=== PATIENT | female | born 1945 | race Caucasian/White ===

== ENCOUNTER 2017-02-17 10:28 | Emergency (ER) | payer MEDICARE, OTHER ==
[2017-02-17 10:41] VITALS: BP 148/67
[2017-02-17] MEDS ORDERED: Albuterol 2.5 MG/3 ML NEB.SOL* (0.083%) INH ONE (10:54)
[2017-02-17] MEDS ORDERED: predniSONE TAB* 20 MG PO ONE (10:55)
[2017-02-17] MEDS ORDERED: Ipratropium 0.5MG/2.5ML NEB* 0.5 MG/2.5 ML NEB.SOLN INH ONE (10:55)
--- NOTE | 2017-02-17 11:00 | UC ---
Respiratory Complaint HPI - HPI Summary HPI Summary: 71 y/o female hx of sever COPD on home O2 2 days hx of cough , sob , chest tightness, no chest pain , has been using albuterol neb tx without much improvement - History of Current Complaint Chief Complaint: UCRespiratory Stated Complaint: SHORTNESS OF BREATH,RESPIRATORY Time Seen by Provider: 02/17/17 10:47 Hx Obtained From: Patient Hx Last Menstrual Period: h/o tubal Onset/Duration: Gradual Onset, Lasting Days - 2, Still Present, Worse Since - past 2 days Timing: Constant Severity Initially: Moderate Severity Currently: Moderate Character: Cough: Nonproductive Aggravating Factors: Exertion Alleviating Factors: Nothing Associated Signs And Symptoms: Positive: Dyspnea, URI, Nasal Congestion. Negative: Fever, Chills, Pleuritic Chest Pain, Wheezing, Hemoptysis, Dizziness, Calf Pain, Calf Swelling, Edema - Allergies/Home Medications Allergies/Adverse Reactions: Allergies Allergy/AdvReac Type Severity Reaction Status Date / Time Ceftriaxone [From Rocephin] Allergy Intermediate Rash Verified 02/17/17 10:41 Erythromycin Allergy Intermediate Abdominal Verified 02/17/17 10:41 Pain Sulfa Drugs Allergy Intermediate Rash Verified 02/17/17 10:41 PMH/Surg Hx/FS Hx/Imm Hx Respiratory History: COPD, Bronchitis, Pneumonia - Surgical History Surgical History: Yes Surgery Procedure, Year, and Place: BLADDER SX. STENTS 2011. R WRIST SX - Family History Known Family History: Positive: Hypertension - Social History Alcohol Use: None Substance Use Type: None Smoking Status (MU): Light Every Day Tobacco Smoker Type: Cigarettes Amount Used/How Often: 1/2 ppd Length of Time of Smoking/Using Tobacco: 50 years Have You Smoked in the Last Year: Yes Household Exposure Type: Cigarettes Review of Systems Constitutional: Fatigue Skin: Negative Eyes: Negative ENT: Nasal Discharge Respiratory: Shortness Of Breath, Cough Cardiovascular: Negative Gastrointestinal: Negative All Other Systems Reviewed And Are Negative: Yes Physical Exam Triage Information Reviewed: Yes Appearance: Ill-Appearing Vital Signs: Initial Vital Signs Temp 100 F 02/17/17 10:35 Pulse 92 02/17/17 10:35 Resp 22 02/17/17 10:35 BP 148/67 02/17/17 10:35 Pulse Ox 94 02/17/17 10:35 Vital Signs Reviewed: Yes Eyes: Positive: Conjunctiva Clear ENT: Positive: Normal ENT inspection, Hearing grossly normal, Pharynx normal Neck: Positive: Supple, Nontender, No Lymphadenopathy Respiratory: Positive: No accessory muscle use, Respiratory distress, Decreased breath sounds - diffuse Cardiovascular: Positive: RRR, No Murmur Abdominal Exam: Normal Musculoskeletal: Positive: Strength Intact, ROM Intact, No Edema Neurological: Positive: Alert, Muscle Tone Normal Skin Exam: Normal UC Diagnostic Evaluation - Laboratory O2 Sat by Pulse Oximetry: 94 Respiratory Course/Dx - Differential Dx/Diagnosis Provider Diagnoses: COPD exacerbation Discharge - Discharge Plan Condition: Fair Disposition: HOME Prescriptions: Levofloxacin TAB* [Levaquin TAB*] 750 mg PO DAILY #5 tab predniSONE TAB* [Deltasone TAB*] 40 mg PO DAILY #14 tab Patient Education Materials: COPD (Chronic Obstructive Pulmonary Disease) (ED) Referrals: Luann Mack PA [Primary Care Provider] - 5 Days
--- NOTE | 2017-02-17 11:23 | RAD ---
Indication: Shortness of breath, cough. 2 views of the chest including dual energy PA views demonstrates no mediastinal shift. Heart is of normal size and configuration. Lung holland appear clear. IMPRESSION: Hyperinflated lung holland. No definite pneumonia is identified.
[2017-02-17] MEDS ORDERED: Acetaminophen TAB* 325 MG PO ONE (11:43)
== END 2017-02-17 12:00 | disposition home or self-care (01) ==
LOC: UCCORT 10:28
DX: J44.1 Chronic obstructive pulmonary disease with (acute) exacerbation (principal); Z88.1 Allergy status to other antibiotic agents; Z88.2 Allergy status to sulfonamides; F17.210 Nicotine dependence, cigarettes, uncomplicated
CPT/HCPCS: 71020; 99212; A9270-GY; G0463; J7512; J7644

== ENCOUNTER 2021-05-07 19:25 | Inpatient (IN) ==
[2021-05-07] MEDS ORDERED: Albuterol 0.5% CONC CONTINUOUS NEB.SOL 5 mg/ml 20 ml BOT INH ONE (19:45)
[2021-05-07 20:20] LABS: ABS Eosinophils 0.2 10^3/ul (0-0.6); ABS Lymphocytes 0.4 10^3/ul (1.0-4.8); ABS Monocytes 0.3 10^3/ul (0-0.8); ABS Neutrophils 7.5 10^3/ul (1.5-7.7); Eosinophil % 2.1 %; Hematocrit 44 % (35-47); Hemoglobin 14.3 g/dL (12.0-16.0); Lymphocyte % 4.2 %; Mean Corpuscular HGB Conc 32 g/dL (31-36); Mean Corpuscular Hemoglobin 28 pg (27-31); Mean Corpuscular Volume 86 fL (80-97); Mean Platelet Volume 9.2 fL (7.4-10.4); Platelet Count 182 10^3/uL (150-450); Red Blood Count 5.19 10^6 /uL (3.70-4.87); Red Cell Distribution Width 15 % (10-15); White Blood Count 8.4 10^3/uL (3.5-10.8)
[2021-05-07] MEDS ORDERED: Albuterol HFA INHALER 8 gm MDI INH ONE (20:30)
[2021-05-07 20:35] LABS: ALT 7 U/L (7-52); AST 8 U/L (13-39); Albumin 3.6 g/dL (3.2-5.2); Albumin/Globulin Ratio 1.3 (1-3); Alkaline Phosphatase 67 U/L (35-149); Anion Gap 10 mmol/L (2-11); Blood Urea Nitrogen 9 mg/dL (6-24); CO2 Carbon Dioxide 27 mmol/L (22-32); Calcium 8.8 mg/dL (8.6-10.3); Chloride 103 mmol/L (101-111); EGFR African American 114.2 (>60); EGFR Non-African American 94.4 (>60); Globulin 2.7 g/dL (2-4); Glucose 145 mg/dL (70-100); Potassium 3.5 mmol/L (3.5-5.0); Sodium 140 mmol/L (135-145); Total Protein 6.3 g/dL (6.4-8.9)
[2021-05-07 20:43] LABS: Rapid COVID-19 Molecular Undetected (Undetected)
[2021-05-07 20:44] LABS: Troponin I 0.03 ng/mL (<0.03)
[2021-05-07 20:45] LABS: Influenza A Molecular Negative (Negative); Influenza B Molecular Negative (Negative)
[2021-05-07] MEDS ORDERED: Dextrose 50% Syringe 50 ml 25 GM/50 ML SYRINGE IV PUSH PRN (22:54)
[2021-05-07] MEDS ORDERED: SPIRIVA Respimat (tiotropium) 2.5 mcg/inh Inhaler INH SCH (23:00)
[2021-05-08] MEDS: Enoxaparin 40 MG/0.4 ML SYR SUBCUT SCH ×2 (00:34→23:44)
[2021-05-08] MEDS: prednisoLONE 1% OPHTH.SUSP 5 ML OPHTH.SUSP LEFT EYE SCH ×3 (03:03→12:23)
[2021-05-08] MEDS: Albuterol HFA INHALER 8 gm MDI INH PRN ×2 (03:04→06:24)
[2021-05-08 05:55] LABS: ABS Lymphocytes 0.3 10^3/ul (1.0-4.8); ABS Monocytes 0.1 10^3/ul (0-0.8); ABS Neutrophils 3.8 10^3/ul (1.5-7.7); Hematocrit 45 % (35-47); Hemoglobin 14.7 g/dL (12.0-16.0); Lymphocyte % 6.9 %; Mean Corpuscular HGB Conc 33 g/dL (31-36); Mean Corpuscular Hemoglobin 28 pg (27-31); Mean Corpuscular Volume 85 fL (80-97); Mean Platelet Volume 8.9 fL (7.4-10.4); Platelet Count 186 10^3/uL (150-450); Red Blood Count 5.33 10^6 /uL (3.70-4.87); Red Cell Distribution Width 15 % (10-15); White Blood Count 4.2 10^3/uL (3.5-10.8)
[2021-05-08 06:11] LABS: EGFR African American 91.7 (>60); EGFR Non-African American 75.7 (>60); Potassium 3.9 mmol/L (3.5-5.0)
[2021-05-08] MEDS: [UNRECOGNIZED DRUG - OTHER] INH SCH (07:09)
[2021-05-08] MEDS ORDERED: Polymyx/Trimethoprim OPTH.SOL 1 BTL BOTH EYES SCH (09:00)
[2021-05-08] MEDS: Ondansetron 4 mg VIAL 2 MG/ML 2 ml VIAL IV PRN (12:23)
[2021-05-08] MEDS: Polymyx/Trimethoprim OPTH.SOL 1 BTL RIGHT EYE SCH ×2 (16:52→20:34)
[2021-05-08] MEDS: prednisoLONE 1% OPHTH.SUSP 5 ML OPHTH.SUSP RIGHT EYE SCH ×2 (18:18→23:45)
[2021-05-09 05:57] LABS: Hematocrit 40 % (35-47); Hemoglobin 12.8 g/dL (12.0-16.0); Mean Corpuscular HGB Conc 32 g/dL (31-36); Mean Corpuscular Hemoglobin 28 pg (27-31); Mean Corpuscular Volume 86 fL (80-97); Mean Platelet Volume 9.1 fL (7.4-10.4); Platelet Count 174 10^3/uL (150-450); Red Blood Count 4.65 10^6 /uL (3.70-4.87); Red Cell Distribution Width 14 % (10-15); White Blood Count 10.7 10^3/uL (3.5-10.8)
[2021-05-09 06:15] LABS: Calcium 8.8 mg/dL (8.6-10.3); EGFR African American 70.6 (>60); EGFR Non-African American 58.4 (>60); Magnesium 2.3 mg/dL (1.9-2.7); Potassium 4.3 mmol/L (3.5-5.0)
[2021-05-09] MEDS: prednisoLONE 1% OPHTH.SUSP 5 ML OPHTH.SUSP RIGHT EYE SCH ×4 (06:19→23:32)
[2021-05-09] MEDS: [UNRECOGNIZED DRUG - OTHER] INH SCH (07:03)
[2021-05-09] MEDS: Polymyx/Trimethoprim OPTH.SOL 1 BTL RIGHT EYE SCH ×4 (09:13→20:19)
[2021-05-09] MEDS: Ondansetron 4 mg VIAL 2 MG/ML 2 ml VIAL IV PRN ×2 (11:09→19:51)
[2021-05-09] MEDS: Enoxaparin 40 MG/0.4 ML SYR SUBCUT SCH (23:31)
[2021-05-10 05:39] LABS: Calcium 8.6 mg/dL (8.6-10.3); Potassium 4.6 mmol/L (3.5-5.0)
[2021-05-10] MEDS: prednisoLONE 1% OPHTH.SUSP 5 ML OPHTH.SUSP RIGHT EYE SCH ×2 (05:47→12:43)
[2021-05-10] MEDS: [UNRECOGNIZED DRUG - OTHER] INH SCH (08:02)
[2021-05-10] MEDS: Polymyx/Trimethoprim OPTH.SOL 1 BTL RIGHT EYE SCH ×2 (09:03→14:38)
[2021-05-10] MEDS: Albuterol HFA INHALER 8 gm MDI INH PRN (09:33)
[2021-05-10 11:49] VITALS: BP 121/58
== END 2021-05-10 16:00 | disposition home or self-care (01) | DRG 189 ==
LOC: ED 19:25 → EDHOLD 22:46 → SUATTDRO 22:46 → MED 05-08 02:44
PROVIDERS: ADMIT Hospitalist; ATTEND Student in an Organized Health Care Education/Training Program